=== PATIENT | male | born 1945 | race Hispanic/Latino ===

== ENCOUNTER → 2021-01-19 | Outpatient (CLI) | payer OTHER ==
[~2021-01-19] MED LIST: LIDOCAINE HCL 4% LTA SOL 4 ML VIAL ONE
== END | disposition home or self-care (01) ==
LOC: WHH 10:14
PROVIDERS: ATTEND Family Medicine
DX: I70.235 Atherosclerosis of native arteries of right leg with ulceration of other part of foot (principal); L97.522 Non-pressure chronic ulcer of other part of left foot with fat layer exposed; I12.9 Hypertensive chronic kidney disease with stage 1 through stage 4 chronic kidney disease, or unspecified chronic kidney disease; N18.2 Chronic kidney disease, stage 2 (mild); N52.9 Male erectile dysfunction, unspecified; M21.612 Bunion of left foot; M21.611 Bunion of right foot; E78.5 Hyperlipidemia, unspecified; E66.9 Obesity, unspecified; Z68.35 Body mass index [BMI] 35.0-35.9, adult
CPT/HCPCS: 87070; A4450; G0463

== ENCOUNTER → 2021-01-25 | Outpatient (CLI) | payer OTHER | END | disposition home or self-care (01) | LOC: RAH 07:26 | PROVIDERS: ATTEND Family Medicine | DX: L97.512 Non-pressure chronic ulcer of other part of right foot with fat layer exposed (principal); M79.89 Other specified soft tissue disorders; M21.00 Valgus deformity, not elsewhere classified, unspecified site; M20.41 Other hammer toe(s) (acquired), right foot | CPT/HCPCS: 73718 ==

== ENCOUNTER → 2021-01-26 | Outpatient (CLI) | payer OTHER | END | disposition home or self-care (01) | LOC: WHH 08:31 | PROVIDERS: ATTEND Family Medicine | DX: I70.235 Atherosclerosis of native arteries of right leg with ulceration of other part of foot (principal); L97.512 Non-pressure chronic ulcer of other part of right foot with fat layer exposed; I12.9 Hypertensive chronic kidney disease with stage 1 through stage 4 chronic kidney disease, or unspecified chronic kidney disease; N18.2 Chronic kidney disease, stage 2 (mild); N52.9 Male erectile dysfunction, unspecified; M21.612 Bunion of left foot; M21.611 Bunion of right foot; E78.5 Hyperlipidemia, unspecified; E66.9 Obesity, unspecified; Z68.35 Body mass index [BMI] 35.0-35.9, adult | CPT/HCPCS: G0463 ==

== ENCOUNTER → 2021-02-02 | Outpatient (CLI) | payer OTHER | END | disposition home or self-care (01) | LOC: WHH 08:10 | PROVIDERS: ATTEND Family Medicine | DX: I70.235 Atherosclerosis of native arteries of right leg with ulceration of other part of foot (principal); L97.512 Non-pressure chronic ulcer of other part of right foot with fat layer exposed; I12.9 Hypertensive chronic kidney disease with stage 1 through stage 4 chronic kidney disease, or unspecified chronic kidney disease; N18.2 Chronic kidney disease, stage 2 (mild); N52.9 Male erectile dysfunction, unspecified; M21.612 Bunion of left foot; M21.611 Bunion of right foot; E78.5 Hyperlipidemia, unspecified; E66.9 Obesity, unspecified; Z68.35 Body mass index [BMI] 35.0-35.9, adult | CPT/HCPCS: G0463 ==

== ENCOUNTER → 2021-02-09 | Outpatient (CLI) | payer OTHER | END | disposition home or self-care (01) | LOC: WHH 08:12 | PROVIDERS: ATTEND Family Medicine | DX: I70.235 Atherosclerosis of native arteries of right leg with ulceration of other part of foot (principal); L97.512 Non-pressure chronic ulcer of other part of right foot with fat layer exposed; I12.9 Hypertensive chronic kidney disease with stage 1 through stage 4 chronic kidney disease, or unspecified chronic kidney disease; N18.2 Chronic kidney disease, stage 2 (mild); N52.9 Male erectile dysfunction, unspecified; M21.612 Bunion of left foot; M21.611 Bunion of right foot; E78.5 Hyperlipidemia, unspecified; E66.9 Obesity, unspecified; Z68.35 Body mass index [BMI] 35.0-35.9, adult | CPT/HCPCS: G0463 ==

== ENCOUNTER → 2021-02-16 | Outpatient (CLI) | payer OTHER | END | disposition home or self-care (01) | LOC: WHH 08:17 | PROVIDERS: ATTEND Family Medicine | DX: I70.235 Atherosclerosis of native arteries of right leg with ulceration of other part of foot (principal); L97.512 Non-pressure chronic ulcer of other part of right foot with fat layer exposed; I70.202 Unspecified atherosclerosis of native arteries of extremities, left leg; I12.9 Hypertensive chronic kidney disease with stage 1 through stage 4 chronic kidney disease, or unspecified chronic kidney disease; N18.2 Chronic kidney disease, stage 2 (mild); N52.9 Male erectile dysfunction, unspecified; M21.612 Bunion of left foot; E78.5 Hyperlipidemia, unspecified; M21.611 Bunion of right foot; E66.9 Obesity, unspecified; Z68.35 Body mass index [BMI] 35.0-35.9, adult | CPT/HCPCS: G0463 ==

== ENCOUNTER → 2021-03-02 | Outpatient (CLI) | payer OTHER | END | disposition home or self-care (01) | LOC: WHH 08:11 | PROVIDERS: ATTEND Family Medicine | DX: I70.235 Atherosclerosis of native arteries of right leg with ulceration of other part of foot (principal); L97.512 Non-pressure chronic ulcer of other part of right foot with fat layer exposed; I70.202 Unspecified atherosclerosis of native arteries of extremities, left leg; I12.9 Hypertensive chronic kidney disease with stage 1 through stage 4 chronic kidney disease, or unspecified chronic kidney disease; N18.2 Chronic kidney disease, stage 2 (mild); E78.5 Hyperlipidemia, unspecified; E66.9 Obesity, unspecified; N52.9 Male erectile dysfunction, unspecified; M21.612 Bunion of left foot; M21.611 Bunion of right foot; Z68.35 Body mass index [BMI] 35.0-35.9, adult | CPT/HCPCS: A6197; G0463 ==

== ENCOUNTER → 2021-03-09 | Outpatient (CLI) | payer OTHER | END | disposition home or self-care (01) | LOC: WHH 08:14 | PROVIDERS: ATTEND Family Medicine | DX: I70.235 Atherosclerosis of native arteries of right leg with ulceration of other part of foot (principal); L97.512 Non-pressure chronic ulcer of other part of right foot with fat layer exposed; I70.202 Unspecified atherosclerosis of native arteries of extremities, left leg; I12.9 Hypertensive chronic kidney disease with stage 1 through stage 4 chronic kidney disease, or unspecified chronic kidney disease; N18.2 Chronic kidney disease, stage 2 (mild); E78.5 Hyperlipidemia, unspecified; E66.9 Obesity, unspecified; N52.9 Male erectile dysfunction, unspecified; M21.612 Bunion of left foot; M21.611 Bunion of right foot; Z68.35 Body mass index [BMI] 35.0-35.9, adult | CPT/HCPCS: 15275; A6197; A6207; Q4121 ×2 ==

== ENCOUNTER → 2021-03-16 | Outpatient (CLI) | payer OTHER | END | disposition home or self-care (01) | LOC: WHH 08:11 | PROVIDERS: ATTEND Family Medicine | DX: I70.235 Atherosclerosis of native arteries of right leg with ulceration of other part of foot (principal); L97.512 Non-pressure chronic ulcer of other part of right foot with fat layer exposed; I70.202 Unspecified atherosclerosis of native arteries of extremities, left leg; I12.9 Hypertensive chronic kidney disease with stage 1 through stage 4 chronic kidney disease, or unspecified chronic kidney disease; N18.2 Chronic kidney disease, stage 2 (mild); E78.5 Hyperlipidemia, unspecified; E66.9 Obesity, unspecified; N52.9 Male erectile dysfunction, unspecified; M21.612 Bunion of left foot; M21.611 Bunion of right foot; Z68.35 Body mass index [BMI] 35.0-35.9, adult | CPT/HCPCS: 15275; A6196; A6207; Q4121 ×2 ==

== ENCOUNTER → 2021-03-23 | Outpatient (CLI) | payer OTHER | END | disposition home or self-care (01) | LOC: WHH 08:15 | PROVIDERS: ATTEND Family Medicine | DX: I70.235 Atherosclerosis of native arteries of right leg with ulceration of other part of foot (principal); L97.512 Non-pressure chronic ulcer of other part of right foot with fat layer exposed; I70.202 Unspecified atherosclerosis of native arteries of extremities, left leg; I12.9 Hypertensive chronic kidney disease with stage 1 through stage 4 chronic kidney disease, or unspecified chronic kidney disease; N18.2 Chronic kidney disease, stage 2 (mild); E78.5 Hyperlipidemia, unspecified; E66.9 Obesity, unspecified; N52.9 Male erectile dysfunction, unspecified; M21.612 Bunion of left foot; M21.611 Bunion of right foot; Z68.35 Body mass index [BMI] 35.0-35.9, adult | CPT/HCPCS: 15275; A6196; A6207; Q4121 ×2 ==

== ENCOUNTER → 2021-04-20 | Outpatient (CLI) | payer OTHER | END | disposition home or self-care (01) | LOC: WHH 08:05 | PROVIDERS: ATTEND Family Medicine | DX: T86.828 Other complications of skin graft (allograft) (autograft) (principal); I70.235 Atherosclerosis of native arteries of right leg with ulceration of other part of foot; L97.512 Non-pressure chronic ulcer of other part of right foot with fat layer exposed; I70.202 Unspecified atherosclerosis of native arteries of extremities, left leg; I12.9 Hypertensive chronic kidney disease with stage 1 through stage 4 chronic kidney disease, or unspecified chronic kidney disease; N18.2 Chronic kidney disease, stage 2 (mild); E78.5 Hyperlipidemia, unspecified; E66.9 Obesity, unspecified; N52.9 Male erectile dysfunction, unspecified; M21.612 Bunion of left foot; M21.611 Bunion of right foot; Z68.25 Body mass index [BMI] 25.0-25.9, adult; Y83.2 Surgical operation with anastomosis, bypass or graft as the cause of abnormal reaction of the patient, or of later complication, without mention of misadventure at the time of the procedure | CPT/HCPCS: 15275; A6197; A6207; Q4121 ×2 ==

== ENCOUNTER → 2021-04-27 | Outpatient (CLI) | payer OTHER | END | disposition home or self-care (01) | LOC: WHH 08:02 | PROVIDERS: ATTEND Family Medicine | DX: T86.828 Other complications of skin graft (allograft) (autograft) (principal); I70.235 Atherosclerosis of native arteries of right leg with ulceration of other part of foot; L97.512 Non-pressure chronic ulcer of other part of right foot with fat layer exposed; I70.202 Unspecified atherosclerosis of native arteries of extremities, left leg; I12.9 Hypertensive chronic kidney disease with stage 1 through stage 4 chronic kidney disease, or unspecified chronic kidney disease; N18.2 Chronic kidney disease, stage 2 (mild); E66.9 Obesity, unspecified; E78.5 Hyperlipidemia, unspecified; N52.9 Male erectile dysfunction, unspecified; M21.611 Bunion of right foot; M21.612 Bunion of left foot; Z68.35 Body mass index [BMI] 35.0-35.9, adult; Z72.89 Other problems related to lifestyle; Z79.899 Other long term (current) drug therapy; Y83.2 Surgical operation with anastomosis, bypass or graft as the cause of abnormal reaction of the patient, or of later complication, without mention of misadventure at the time of the procedure | CPT/HCPCS: 15275; A6196; A6207; Q4121 ×2 ==

== ENCOUNTER → 2021-05-04 | Outpatient (CLI) | payer OTHER | END | disposition home or self-care (01) | LOC: WHH 08:09 | PROVIDERS: ATTEND Family Medicine | DX: T86.828 Other complications of skin graft (allograft) (autograft) (principal); I70.235 Atherosclerosis of native arteries of right leg with ulceration of other part of foot; L97.512 Non-pressure chronic ulcer of other part of right foot with fat layer exposed; I70.202 Unspecified atherosclerosis of native arteries of extremities, left leg; M21.611 Bunion of right foot; M21.612 Bunion of left foot; I12.9 Hypertensive chronic kidney disease with stage 1 through stage 4 chronic kidney disease, or unspecified chronic kidney disease; N18.2 Chronic kidney disease, stage 2 (mild); E66.9 Obesity, unspecified; E78.5 Hyperlipidemia, unspecified; N52.9 Male erectile dysfunction, unspecified; Z68.35 Body mass index [BMI] 35.0-35.9, adult; Z72.89 Other problems related to lifestyle; Z79.899 Other long term (current) drug therapy; Y83.2 Surgical operation with anastomosis, bypass or graft as the cause of abnormal reaction of the patient, or of later complication, without mention of misadventure at the time of the procedure | CPT/HCPCS: 15275; A6196; A6207; Q4121 ×2 ==

== ENCOUNTER → 2021-05-18 | Outpatient (CLI) | payer OTHER | END | disposition home or self-care (01) | LOC: WHH 08:02 | PROVIDERS: ATTEND Family Medicine | DX: T86.828 Other complications of skin graft (allograft) (autograft) (principal); I70.235 Atherosclerosis of native arteries of right leg with ulceration of other part of foot; L97.512 Non-pressure chronic ulcer of other part of right foot with fat layer exposed; I70.202 Unspecified atherosclerosis of native arteries of extremities, left leg; M21.611 Bunion of right foot; M21.612 Bunion of left foot; N18.6 End stage renal disease; E66.9 Obesity, unspecified; E78.5 Hyperlipidemia, unspecified; N52.9 Male erectile dysfunction, unspecified; Z68.35 Body mass index [BMI] 35.0-35.9, adult; Z72.89 Other problems related to lifestyle; Z79.899 Other long term (current) drug therapy; Y83.2 Surgical operation with anastomosis, bypass or graft as the cause of abnormal reaction of the patient, or of later complication, without mention of misadventure at the time of the procedure | CPT/HCPCS: 15275; A6197; A6207; Q4121 ×2 ==

== ENCOUNTER → 2021-07-06 | Outpatient (CLI) | payer OTHER | END | disposition home or self-care (01) | LOC: WHH 08:12 | PROVIDERS: ATTEND Family Medicine | DX: T86.828 Other complications of skin graft (allograft) (autograft) (principal); I70.235 Atherosclerosis of native arteries of right leg with ulceration of other part of foot; L97.512 Non-pressure chronic ulcer of other part of right foot with fat layer exposed; I70.202 Unspecified atherosclerosis of native arteries of extremities, left leg; M21.611 Bunion of right foot; M21.612 Bunion of left foot; I12.0 Hypertensive chronic kidney disease with stage 5 chronic kidney disease or end stage renal disease; N18.6 End stage renal disease; E66.9 Obesity, unspecified; E78.5 Hyperlipidemia, unspecified; N25.9 Disorder resulting from impaired renal tubular function, unspecified; Z68.35 Body mass index [BMI] 35.0-35.9, adult; Z72.89 Other problems related to lifestyle; Z79.899 Other long term (current) drug therapy; Y83.2 Surgical operation with anastomosis, bypass or graft as the cause of abnormal reaction of the patient, or of later complication, without mention of misadventure at the time of the procedure | CPT/HCPCS: A6021; A6197; G0463 ==

== ENCOUNTER → 2021-07-13 | Outpatient (CLI) | payer OTHER | END | disposition home or self-care (01) | LOC: WHH 08:15 | PROVIDERS: ATTEND Family Medicine | DX: T86.828 Other complications of skin graft (allograft) (autograft) (principal); I70.235 Atherosclerosis of native arteries of right leg with ulceration of other part of foot; L97.512 Non-pressure chronic ulcer of other part of right foot with fat layer exposed; I70.202 Unspecified atherosclerosis of native arteries of extremities, left leg; M21.611 Bunion of right foot; M21.612 Bunion of left foot; I12.0 Hypertensive chronic kidney disease with stage 5 chronic kidney disease or end stage renal disease; N18.6 End stage renal disease; E66.9 Obesity, unspecified; E78.5 Hyperlipidemia, unspecified; N25.9 Disorder resulting from impaired renal tubular function, unspecified; Z68.35 Body mass index [BMI] 35.0-35.9, adult; Z72.89 Other problems related to lifestyle; Z79.899 Other long term (current) drug therapy; Y83.2 Surgical operation with anastomosis, bypass or graft as the cause of abnormal reaction of the patient, or of later complication, without mention of misadventure at the time of the procedure | CPT/HCPCS: A6021; A6196; G0463 ==

== ENCOUNTER → 2021-07-20 | Outpatient (CLI) | payer OTHER | END | disposition home or self-care (01) | LOC: WHH 08:10 | PROVIDERS: ATTEND Family Medicine | DX: T86.828 Other complications of skin graft (allograft) (autograft) (principal); I70.235 Atherosclerosis of native arteries of right leg with ulceration of other part of foot; L97.512 Non-pressure chronic ulcer of other part of right foot with fat layer exposed; I70.202 Unspecified atherosclerosis of native arteries of extremities, left leg; M21.611 Bunion of right foot; M21.612 Bunion of left foot; I12.0 Hypertensive chronic kidney disease with stage 5 chronic kidney disease or end stage renal disease; N18.6 End stage renal disease; E66.9 Obesity, unspecified; E78.5 Hyperlipidemia, unspecified; N25.9 Disorder resulting from impaired renal tubular function, unspecified; Z68.35 Body mass index [BMI] 35.0-35.9, adult; Z72.89 Other problems related to lifestyle; Z79.899 Other long term (current) drug therapy; Y83.2 Surgical operation with anastomosis, bypass or graft as the cause of abnormal reaction of the patient, or of later complication, without mention of misadventure at the time of the procedure | CPT/HCPCS: A6021; A6196; G0463 ==

== ENCOUNTER → 2021-07-27 | Outpatient (CLI) | payer OTHER | END | disposition home or self-care (01) | LOC: WHH 08:12 | PROVIDERS: ATTEND Family Medicine | DX: T86.828 Other complications of skin graft (allograft) (autograft) (principal); I70.235 Atherosclerosis of native arteries of right leg with ulceration of other part of foot; L97.512 Non-pressure chronic ulcer of other part of right foot with fat layer exposed; I70.202 Unspecified atherosclerosis of native arteries of extremities, left leg; M21.611 Bunion of right foot; M21.612 Bunion of left foot; I12.0 Hypertensive chronic kidney disease with stage 5 chronic kidney disease or end stage renal disease; N18.6 End stage renal disease; E66.9 Obesity, unspecified; E78.5 Hyperlipidemia, unspecified; N25.9 Disorder resulting from impaired renal tubular function, unspecified; Z68.35 Body mass index [BMI] 35.0-35.9, adult; Z72.89 Other problems related to lifestyle; Z79.899 Other long term (current) drug therapy; Y83.2 Surgical operation with anastomosis, bypass or graft as the cause of abnormal reaction of the patient, or of later complication, without mention of misadventure at the time of the procedure | CPT/HCPCS: A6021; A6197; G0463 ==

== ENCOUNTER → 2021-08-03 | Outpatient (CLI) | payer OTHER | END | disposition home or self-care (01) | LOC: WHH 07:55 | PROVIDERS: ATTEND Family Medicine | DX: T86.828 Other complications of skin graft (allograft) (autograft) (principal); I70.235 Atherosclerosis of native arteries of right leg with ulceration of other part of foot; L97.512 Non-pressure chronic ulcer of other part of right foot with fat layer exposed; I70.202 Unspecified atherosclerosis of native arteries of extremities, left leg; M21.611 Bunion of right foot; M21.612 Bunion of left foot; I12.0 Hypertensive chronic kidney disease with stage 5 chronic kidney disease or end stage renal disease; N18.6 End stage renal disease; E66.9 Obesity, unspecified; E78.5 Hyperlipidemia, unspecified; N25.9 Disorder resulting from impaired renal tubular function, unspecified; Z68.35 Body mass index [BMI] 35.0-35.9, adult; Z72.89 Other problems related to lifestyle; Z79.899 Other long term (current) drug therapy; Y83.2 Surgical operation with anastomosis, bypass or graft as the cause of abnormal reaction of the patient, or of later complication, without mention of misadventure at the time of the procedure | CPT/HCPCS: 11042; A6209 ==

== ENCOUNTER → 2021-08-10 | Outpatient (CLI) | payer OTHER | END | disposition home or self-care (01) | LOC: WHH 08:09 | PROVIDERS: ATTEND Family Medicine | DX: T86.828 Other complications of skin graft (allograft) (autograft) (principal); I70.235 Atherosclerosis of native arteries of right leg with ulceration of other part of foot; L97.512 Non-pressure chronic ulcer of other part of right foot with fat layer exposed; I70.202 Unspecified atherosclerosis of native arteries of extremities, left leg; M21.611 Bunion of right foot; M21.612 Bunion of left foot; I12.0 Hypertensive chronic kidney disease with stage 5 chronic kidney disease or end stage renal disease; N18.6 End stage renal disease; E66.9 Obesity, unspecified; E78.5 Hyperlipidemia, unspecified; N25.9 Disorder resulting from impaired renal tubular function, unspecified; Z68.35 Body mass index [BMI] 35.0-35.9, adult; Z72.89 Other problems related to lifestyle; Z79.899 Other long term (current) drug therapy; Y83.2 Surgical operation with anastomosis, bypass or graft as the cause of abnormal reaction of the patient, or of later complication, without mention of misadventure at the time of the procedure | CPT/HCPCS: G0463 ==

== ENCOUNTER → 2021-08-17 | Outpatient (CLI) | payer OTHER | END | disposition home or self-care (01) | LOC: WHH 08:27 | PROVIDERS: ATTEND Family Medicine | DX: T86.828 Other complications of skin graft (allograft) (autograft) (principal); I70.235 Atherosclerosis of native arteries of right leg with ulceration of other part of foot; L97.512 Non-pressure chronic ulcer of other part of right foot with fat layer exposed; I70.202 Unspecified atherosclerosis of native arteries of extremities, left leg; M21.611 Bunion of right foot; M21.612 Bunion of left foot; I12.0 Hypertensive chronic kidney disease with stage 5 chronic kidney disease or end stage renal disease; N18.6 End stage renal disease; E66.9 Obesity, unspecified; E78.5 Hyperlipidemia, unspecified; N25.9 Disorder resulting from impaired renal tubular function, unspecified; Z68.35 Body mass index [BMI] 35.0-35.9, adult; Z72.89 Other problems related to lifestyle; Z79.899 Other long term (current) drug therapy; Y83.2 Surgical operation with anastomosis, bypass or graft as the cause of abnormal reaction of the patient, or of later complication, without mention of misadventure at the time of the procedure | CPT/HCPCS: 11042; A6196 ==

== ENCOUNTER → 2021-08-24 | Outpatient (CLI) | payer OTHER | END | disposition home or self-care (01) | LOC: WHH 08:00 | PROVIDERS: ATTEND Family Medicine | DX: T86.828 Other complications of skin graft (allograft) (autograft) (principal); I70.235 Atherosclerosis of native arteries of right leg with ulceration of other part of foot; L97.512 Non-pressure chronic ulcer of other part of right foot with fat layer exposed; M21.611 Bunion of right foot; M21.612 Bunion of left foot; I12.0 Hypertensive chronic kidney disease with stage 5 chronic kidney disease or end stage renal disease; N18.6 End stage renal disease; E66.9 Obesity, unspecified; E78.5 Hyperlipidemia, unspecified; N25.9 Disorder resulting from impaired renal tubular function, unspecified; Z68.35 Body mass index [BMI] 35.0-35.9, adult; Z72.89 Other problems related to lifestyle; Z79.899 Other long term (current) drug therapy; Y83.2 Surgical operation with anastomosis, bypass or graft as the cause of abnormal reaction of the patient, or of later complication, without mention of misadventure at the time of the procedure | CPT/HCPCS: 87070; 87077; 87186; A4450; A6196; G0463 ==

== ENCOUNTER → 2021-08-31 | Outpatient (CLI) | payer OTHER | END | disposition home or self-care (01) | LOC: WHH 08:01 | PROVIDERS: ATTEND Family Medicine | DX: I70.235 Atherosclerosis of native arteries of right leg with ulceration of other part of foot (principal); L97.512 Non-pressure chronic ulcer of other part of right foot with fat layer exposed; M21.611 Bunion of right foot; M21.612 Bunion of left foot; I12.0 Hypertensive chronic kidney disease with stage 5 chronic kidney disease or end stage renal disease; N18.6 End stage renal disease; E66.9 Obesity, unspecified; E78.5 Hyperlipidemia, unspecified; Z68.35 Body mass index [BMI] 35.0-35.9, adult; Z72.89 Other problems related to lifestyle; Z79.899 Other long term (current) drug therapy | CPT/HCPCS: 11042; A6022; A6196 ==

== ENCOUNTER → 2021-09-07 | Outpatient (CLI) | payer OTHER | END | disposition home or self-care (01) | LOC: WHH 08:03 | PROVIDERS: ATTEND Family Medicine | DX: I70.235 Atherosclerosis of native arteries of right leg with ulceration of other part of foot (principal); L97.512 Non-pressure chronic ulcer of other part of right foot with fat layer exposed; M21.611 Bunion of right foot; M21.612 Bunion of left foot; I12.0 Hypertensive chronic kidney disease with stage 5 chronic kidney disease or end stage renal disease; N18.6 End stage renal disease; E66.9 Obesity, unspecified; E78.5 Hyperlipidemia, unspecified; Z68.35 Body mass index [BMI] 35.0-35.9, adult; Z72.89 Other problems related to lifestyle; Z79.899 Other long term (current) drug therapy | CPT/HCPCS: 11042; A6022; A6197 ==

== ENCOUNTER → 2021-09-14 | Outpatient (CLI) | payer OTHER | END | disposition home or self-care (01) | LOC: WHH 08:10 | PROVIDERS: ATTEND Family Medicine | DX: I70.235 Atherosclerosis of native arteries of right leg with ulceration of other part of foot (principal); L97.512 Non-pressure chronic ulcer of other part of right foot with fat layer exposed; M21.611 Bunion of right foot; M21.612 Bunion of left foot; I12.0 Hypertensive chronic kidney disease with stage 5 chronic kidney disease or end stage renal disease; N18.6 End stage renal disease; E66.9 Obesity, unspecified; E78.5 Hyperlipidemia, unspecified; N52.9 Male erectile dysfunction, unspecified; Z68.35 Body mass index [BMI] 35.0-35.9, adult; Z72.89 Other problems related to lifestyle; Z79.899 Other long term (current) drug therapy | CPT/HCPCS: 11042; A6209 ==

== ENCOUNTER → 2021-09-21 | Outpatient (CLI) | payer OTHER | END | disposition home or self-care (01) | LOC: WHH 07:57 | PROVIDERS: ATTEND Family Medicine | DX: I70.235 Atherosclerosis of native arteries of right leg with ulceration of other part of foot (principal); L97.512 Non-pressure chronic ulcer of other part of right foot with fat layer exposed; M21.611 Bunion of right foot; M21.612 Bunion of left foot; I12.0 Hypertensive chronic kidney disease with stage 5 chronic kidney disease or end stage renal disease; N18.6 End stage renal disease; E66.9 Obesity, unspecified; E78.5 Hyperlipidemia, unspecified; N52.9 Male erectile dysfunction, unspecified; Z68.35 Body mass index [BMI] 35.0-35.9, adult; Z72.89 Other problems related to lifestyle; Z79.899 Other long term (current) drug therapy | CPT/HCPCS: A6209; G0463 ==

== ENCOUNTER 2021-10-04 11:39 | Observation (INO) | payer OTHER ==
[~2021-10-04] VITALS: Ht 167.6 cm; Wt 94.7 kg
[2021-10-04 12:54] LABS: APPEARANCE,URINE TURBID (CLEAR)
[2021-10-04 12:56] LABS: GLUCOSE, URINE (UA) NEGATIVE (NEGATIVE); OCCULT BLOOD,URINE LARGE (NEGATIVE); PROTEIN,URINE 100 mg/dL (NEGATIVE)
[2021-10-04 12:57] LABS: BILIRUBIN,URINE MODERATE (NEGATIVE); KETONES,URINE NEGATIVE (NEGATIVE); UROBILINOGEN,URINE 0.2 mg/dL (0.2-1.0)
[2021-10-04 12:58] LABS: COLOR,URINE RED (YELLOW); LEUKOCYTE ESTERASE ,URINE SMALL (NEGATIVE); NITRATE,URINE NEGATIVE (NEGATIVE)
[2021-10-04 13:04] LABS: BACTERIA,URINE Few /HPF (None Seen); RBC,URINE TNTC /HPF (0-1); SQUAMOUS EPITHELIAL CELL,UR Rare /HPF (0-2); WBC,URINE 26-50 /HPF (0-1)
[2021-10-04 13:31] LABS: HEMATOCRIT 36.8 % (42-54); MEAN CORPUSCULAR HEMOGLOBIN 29.3 pg (27.0-33.0); MEAN CORPUSCULAR HGB CONC 33.2 g/dL (32.0-36.0); MEAN CORPUSCULAR VOLUME 88.5 fL (79-99); RED BLOOD CELL COUNT(AUTO) 4.16 MIL/uL (4.50-6.20); RED CELL DISTRIBUTION WIDTH 13.5 % (11.0-15.5); WHITE BLOOD COUNT (AUTO) 7.8 K/uL (4.8-10.8)
[2021-10-04 13:52] LABS: CREATININE 0.9 mg/dL (0.5-1.5); POTASSIUM 3.7 mmol/L (3.5-5.1)
[2021-10-04 13:57] LABS: ALBUMIN 4.1 g/dL (3.5-5.0); BILIRUBIN,DIRECT 0.1 mg/dL (0.0-0.3); BILIRUBIN,TOTAL 0.5 mg/dL (0.2-1.0); TOTAL PROTEIN, SERUM 8.4 g/dL (6.0-8.3)
[2021-10-04] MEDS ORDERED: GUAIFENESIN-DM 200/20 MG 10 ML PO PRN (14:30)
[2021-10-04] MEDS ORDERED: ONDANSETRON 4MG INJ IVP PRN (14:30)
[2021-10-04] MEDS ORDERED: ACETAMINOPHEN 325 MG TAB PO PRN (14:30)
[2021-10-04] MEDS ORDERED: ZOLPIDEM TARTRATE 5 MG TAB PO PRN (14:30)
[2021-10-04] MEDS ORDERED: DIPHENHYDRAMINE HCL 25 MG CAPSULE PO PRN (14:30)
[2021-10-04 16:00] VITALS: BP 130/82
[2021-10-04 20:00] VITALS: BP 140/85
[2021-10-04] MEDS: 0.9%NACL 10ML VIAL IVP SCH ×2 (20:06→22:04)
[2021-10-04] MEDS ORDERED: IOHEXOL 350 MG/ML 100ML INFUS..BTL IV ONE (20:07)
[2021-10-04] MEDS: LISINOPRIL 40 MG TABLET PO SCH (22:03)
[2021-10-04] MEDS: SIMVASTATIN 20 MG TABLET PO SCH (22:03)
[2021-10-05] VITALS (20 sets, daily range): BP systolic 125–186; BP diastolic 60–96
[2021-10-05 05:16] LABS: HEMATOCRIT 36.9 % (42-54); MEAN CORPUSCULAR HGB CONC 32.8 g/dL (32.0-36.0); MEAN CORPUSCULAR VOLUME 88.5 fL (79-99); RED BLOOD CELL COUNT(AUTO) 4.17 MIL/uL (4.50-6.20); RED CELL DISTRIBUTION WIDTH 13.4 % (11.0-15.5); WHITE BLOOD COUNT (AUTO) 7.6 K/uL (4.8-10.8)
[2021-10-05 05:23] LABS: CREATININE 0.9 mg/dL (0.5-1.5); POTASSIUM 3.5 mmol/L (3.5-5.1)
[2021-10-05] MEDS ORDERED: CEFTRIAXONE 1G VIAL IVP SCH (08:00)
[2021-10-05] MEDS: LISINOPRIL 40 MG TABLET PO SCH ×2 (08:44→22:51)
[2021-10-05] MEDS: AMLODIPINE 5 MG TAB PO SCH (08:44)
[2021-10-05] MEDS ORDERED: LIDOCAINE PF 100MG/5ML (2%) SYRINGE 5ML ONE (12:35)
[2021-10-05] MEDS ORDERED: SUCCINYLCHOLINE 200MG/10ML SYR ONE (12:35)
[2021-10-05] MEDS ORDERED: DEXAMETHASONE SOD PHOSPHATE 10MG/ML 1ML VIAL ONE (12:35)
[2021-10-05] MEDS ORDERED: NEOSTIGMINE 5MG/5ML SYR IV ONE (12:36)
[2021-10-05] MEDS ORDERED: GLYCOPYRROLATE 1 MG/5 ML SYRINGE ONE (12:36)
[2021-10-05] MEDS ORDERED: MIDAZOLAM HCL 1 MG/ML 2ML VIAL ONE (12:36)
[2021-10-05] MEDS ORDERED: ONDANSETRON 4MG INJ ONE (12:36)
[2021-10-05] MEDS ORDERED: ROCURONIUM 10MG/1ML SYR 10 MG/ML ML ONE (12:36)
[2021-10-05] MEDS ORDERED: PROPOFOL 10 MG/ML 20ML VIAL IV ONE (12:36)
[2021-10-05] MEDS ORDERED: FENTANYL CITRATE PF 50 MCG/1 ML 2ML VIAL ONE (12:37)
[2021-10-05] MEDS ORDERED: PHENYLEPHRINE HCL 10 MG/ML 1ML VIAL IV ONE (12:38)
[2021-10-05] MEDS ORDERED: EPHEDRINE SULFATE 50 MG/ML AMPULE ONE (21:41)
[2021-10-05] MEDS ORDERED: MEPERIDINE-PF 25 MG/ML SYG ONE (22:33)
[2021-10-05] MEDS: SIMVASTATIN 20 MG TABLET PO SCH (22:51)
[2021-10-05] MEDS: CILOSTAZOL 100 MG TAB PO SCH (22:51)
[2021-10-06] VITALS (7 sets, daily range): BP systolic 129–170; BP diastolic 72–83
[2021-10-06] MEDS ORDERED: OPIUM/BELLADONNA ALKALOIDS 1 EACH SUPP.RECT RC PRN (03:30)
[2021-10-06] MEDS ORDERED: HYDROCODONE/ACETAMINOPHEN 5/325 MG TAB PO PRN (03:30)
[2021-10-06] MEDS ORDERED: DOCUSATE SODIUM 100 MG CAP PO SCH (09:00)
[2021-10-06] MEDS ORDERED: BACITRACIN 28.4 GM OINT TP SCH (09:00)
[2021-10-06] MEDS ORDERED: HYDROCHLOROTHIAZIDE 25 MG TABLET PO SCH (09:00)
[2021-10-06] MEDS: CILOSTAZOL 100 MG TAB PO SCH (09:06)
[2021-10-06] MEDS: AMLODIPINE 5 MG TAB PO SCH (09:06)
[2021-10-06] MEDS: LISINOPRIL 40 MG TABLET PO SCH (09:06)
[2021-10-11] MEDS ORDERED: CLONIDINE 0.3 MG/ 24 HR PATCH TD SCH (09:00)
== END 2021-10-06 17:00 | disposition home or self-care (01) ==
LOC: EDH 11:39 → EDHIP 11:41 → 3CH 17:05
PROVIDERS: ADMIT Internal Medicine; ATTEND Internal Medicine
DX: R31.0 Gross hematuria (principal); Z20.822 Contact with and (suspected) exposure to COVID-19; I10 Essential (primary) hypertension; I73.9 Peripheral vascular disease, unspecified; E78.2 Mixed hyperlipidemia; C67.5 Malignant neoplasm of bladder neck; N32.89 Other specified disorders of bladder; Z79.899 Other long term (current) drug therapy; Z98.890 Other specified postprocedural states
CPT/HCPCS: 36415 ×2; 52001; 52235; 71045; 74178; 76770; 80048 ×2; 80076; 81001; 85027 ×2; 87088; 87635; 93005; 96374; A4354; A4358; A4930; G0378 ×50; J0330; J0696; J1100; J2001; J2175; J2250; J2370; J2405; J2704; J2710; J3010; J3490 ×2; J7120; Q9967

== ENCOUNTER → 2021-10-19 | Outpatient (CLI) | payer OTHER ==
[~2021-10-19] MED LIST changes: -LIDOCAINE HCL 4% LTA SOL 4 ML VIAL ONE; +LIDOCAINE HCL 4% LTA SOL 4 ML VIAL TP ONE
== END | disposition home or self-care (01) ==
LOC: WHH 08:06
PROVIDERS: ATTEND Family Medicine
DX: I70.235 Atherosclerosis of native arteries of right leg with ulceration of other part of foot (principal); L97.512 Non-pressure chronic ulcer of other part of right foot with fat layer exposed; M21.611 Bunion of right foot; M21.612 Bunion of left foot; I12.0 Hypertensive chronic kidney disease with stage 5 chronic kidney disease or end stage renal disease; N18.6 End stage renal disease; E78.5 Hyperlipidemia, unspecified; N52.9 Male erectile dysfunction, unspecified; E66.9 Obesity, unspecified; Z68.35 Body mass index [BMI] 35.0-35.9, adult; Z72.89 Other problems related to lifestyle; Z79.899 Other long term (current) drug therapy
CPT/HCPCS: A6209; G0463

== ENCOUNTER → 2021-11-30 | Outpatient (CLI) | payer OTHER | END | disposition home or self-care (01) | LOC: WHH 08:05 | PROVIDERS: ATTEND Family Medicine | DX: I70.235 Atherosclerosis of native arteries of right leg with ulceration of other part of foot (principal); L97.512 Non-pressure chronic ulcer of other part of right foot with fat layer exposed; M21.611 Bunion of right foot; M21.612 Bunion of left foot; I12.0 Hypertensive chronic kidney disease with stage 5 chronic kidney disease or end stage renal disease; N18.6 End stage renal disease; E78.5 Hyperlipidemia, unspecified; N52.9 Male erectile dysfunction, unspecified; E66.9 Obesity, unspecified; Z68.35 Body mass index [BMI] 35.0-35.9, adult; Z72.89 Other problems related to lifestyle; Z79.899 Other long term (current) drug therapy | CPT/HCPCS: A4450; A6209; G0463 ==

== ENCOUNTER → 2021-12-14 | Outpatient (CLI) | payer OTHER | END | disposition home or self-care (01) | LOC: WHH 08:14 | PROVIDERS: ATTEND Family Medicine | DX: I70.235 Atherosclerosis of native arteries of right leg with ulceration of other part of foot (principal); L97.512 Non-pressure chronic ulcer of other part of right foot with fat layer exposed; M21.611 Bunion of right foot; M21.612 Bunion of left foot; I12.0 Hypertensive chronic kidney disease with stage 5 chronic kidney disease or end stage renal disease; N18.6 End stage renal disease; E78.5 Hyperlipidemia, unspecified; N52.9 Male erectile dysfunction, unspecified; E66.9 Obesity, unspecified; Z68.35 Body mass index [BMI] 35.0-35.9, adult; Z72.89 Other problems related to lifestyle; Z79.899 Other long term (current) drug therapy | CPT/HCPCS: G0463 ==

== ENCOUNTER → 2021-12-28 | Outpatient (CLI) | payer OTHER | END | disposition home or self-care (01) | LOC: WHH 08:05 | PROVIDERS: ATTEND Family Medicine | DX: I70.235 Atherosclerosis of native arteries of right leg with ulceration of other part of foot (principal); L97.512 Non-pressure chronic ulcer of other part of right foot with fat layer exposed; M21.611 Bunion of right foot; M21.612 Bunion of left foot; I12.0 Hypertensive chronic kidney disease with stage 5 chronic kidney disease or end stage renal disease; N18.6 End stage renal disease; E78.5 Hyperlipidemia, unspecified; N52.9 Male erectile dysfunction, unspecified; E66.9 Obesity, unspecified; Z68.35 Body mass index [BMI] 35.0-35.9, adult; Z72.89 Other problems related to lifestyle; Z79.899 Other long term (current) drug therapy | CPT/HCPCS: 11042; A4450; A6209 ==

== ENCOUNTER → 2022-01-11 | Outpatient (CLI) | payer OTHER | END | disposition home or self-care (01) | LOC: WHH 07:49 | PROVIDERS: ATTEND Family Medicine | DX: I70.235 Atherosclerosis of native arteries of right leg with ulceration of other part of foot (principal); L97.512 Non-pressure chronic ulcer of other part of right foot with fat layer exposed; M21.611 Bunion of right foot; M21.612 Bunion of left foot; I12.0 Hypertensive chronic kidney disease with stage 5 chronic kidney disease or end stage renal disease; N18.6 End stage renal disease; E78.5 Hyperlipidemia, unspecified; N52.9 Male erectile dysfunction, unspecified; E66.9 Obesity, unspecified; Z68.35 Body mass index [BMI] 35.0-35.9, adult; Z72.89 Other problems related to lifestyle; Z79.899 Other long term (current) drug therapy | CPT/HCPCS: 11042; A6209 ==

== ENCOUNTER → 2022-01-25 | Outpatient (CLI) | payer OTHER | END | disposition home or self-care (01) | LOC: WHH 08:07 | PROVIDERS: ATTEND Family Medicine | DX: I70.235 Atherosclerosis of native arteries of right leg with ulceration of other part of foot (principal); L97.512 Non-pressure chronic ulcer of other part of right foot with fat layer exposed; M21.611 Bunion of right foot; M21.612 Bunion of left foot; I12.0 Hypertensive chronic kidney disease with stage 5 chronic kidney disease or end stage renal disease; N18.6 End stage renal disease; E78.5 Hyperlipidemia, unspecified; N52.9 Male erectile dysfunction, unspecified; E66.9 Obesity, unspecified; Z68.35 Body mass index [BMI] 35.0-35.9, adult; Z72.89 Other problems related to lifestyle; Z79.899 Other long term (current) drug therapy | CPT/HCPCS: 97597; A6209 ==

== ENCOUNTER → 2022-02-08 | Outpatient (CLI) | payer OTHER | END | disposition home or self-care (01) | LOC: WHH 08:06 | PROVIDERS: ATTEND Family Medicine | DX: I70.235 Atherosclerosis of native arteries of right leg with ulceration of other part of foot (principal); L97.512 Non-pressure chronic ulcer of other part of right foot with fat layer exposed; M21.511 Acquired clawhand, right hand; M21.612 Bunion of left foot; I12.0 Hypertensive chronic kidney disease with stage 5 chronic kidney disease or end stage renal disease; N18.6 End stage renal disease; E78.5 Hyperlipidemia, unspecified; N52.9 Male erectile dysfunction, unspecified; E66.9 Obesity, unspecified; Z68.35 Body mass index [BMI] 35.0-35.9, adult; Z72.89 Other problems related to lifestyle; Z79.899 Other long term (current) drug therapy | CPT/HCPCS: 11042; A6209; A4450 ==

== ENCOUNTER → 2022-03-01 | Outpatient (CLI) | payer OTHER | END | disposition home or self-care (01) | LOC: WHH 08:12 | PROVIDERS: ATTEND Family Medicine | DX: I70.245 Atherosclerosis of native arteries of left leg with ulceration of other part of foot (principal); L97.525 Non-pressure chronic ulcer of other part of left foot with muscle involvement without evidence of necrosis; I70.235 Atherosclerosis of native arteries of right leg with ulceration of other part of foot; L97.512 Non-pressure chronic ulcer of other part of right foot with fat layer exposed; M21.611 Bunion of right foot; M21.612 Bunion of left foot; S91.302D Unspecified open wound, left foot, subsequent encounter; I12.0 Hypertensive chronic kidney disease with stage 5 chronic kidney disease or end stage renal disease; N18.6 End stage renal disease; E78.5 Hyperlipidemia, unspecified; N52.9 Male erectile dysfunction, unspecified; E66.9 Obesity, unspecified; F10.20 Alcohol dependence, uncomplicated; Z68.35 Body mass index [BMI] 35.0-35.9, adult; Z79.899 Other long term (current) drug therapy; X58.XXXD Exposure to other specified factors, subsequent encounter | CPT/HCPCS: G0463; A6209; A4450 ==

== ENCOUNTER → 2022-03-15 | Outpatient (CLI) | payer OTHER ==
[~2022-03-15] MED LIST changes: +GENTAMICIN 15 GM CREAM TP ONE
== END | disposition home or self-care (01) ==
LOC: WHH 08:04
PROVIDERS: ATTEND Family Medicine
DX: I70.235 Atherosclerosis of native arteries of right leg with ulceration of other part of foot (principal); L97.512 Non-pressure chronic ulcer of other part of right foot with fat layer exposed; I70.245 Atherosclerosis of native arteries of left leg with ulceration of other part of foot; L97.525 Non-pressure chronic ulcer of other part of left foot with muscle involvement without evidence of necrosis; I70.243 Atherosclerosis of native arteries of left leg with ulceration of ankle; L97.321 Non-pressure chronic ulcer of left ankle limited to breakdown of skin; S91.111A Laceration without foreign body of right great toe without damage to nail, initial encounter; S81.802D Unspecified open wound, left lower leg, subsequent encounter; M21.611 Bunion of right foot; M21.612 Bunion of left foot; I12.0 Hypertensive chronic kidney disease with stage 5 chronic kidney disease or end stage renal disease; N18.6 End stage renal disease; E78.5 Hyperlipidemia, unspecified; N52.9 Male erectile dysfunction, unspecified; E66.9 Obesity, unspecified; F10.20 Alcohol dependence, uncomplicated; Z68.35 Body mass index [BMI] 35.0-35.9, adult; Z79.899 Other long term (current) drug therapy; X58.XXXD Exposure to other specified factors, subsequent encounter; X58.XXXA Exposure to other specified factors, initial encounter; Y93.89 Activity, other specified; Y92.89 Other specified places as the place of occurrence of the external cause; Y99.8 Other external cause status
CPT/HCPCS: 97597; 87070; 87077 ×3; 87186 ×3; A6021; A6197

== ENCOUNTER → 2022-03-22 | Outpatient (CLI) | payer OTHER ==
[~2022-03-22] MED LIST changes: -GENTAMICIN 15 GM CREAM TP ONE
== END | disposition home or self-care (01) ==
LOC: WHH 08:23
PROVIDERS: ATTEND Family Medicine
DX: I70.245 Atherosclerosis of native arteries of left leg with ulceration of other part of foot (principal); L97.526 Non-pressure chronic ulcer of other part of left foot with bone involvement without evidence of necrosis; I70.235 Atherosclerosis of native arteries of right leg with ulceration of other part of foot; L97.522 Non-pressure chronic ulcer of other part of left foot with fat layer exposed; I70.243 Atherosclerosis of native arteries of left leg with ulceration of ankle; L97.322 Non-pressure chronic ulcer of left ankle with fat layer exposed; S91.111D Laceration without foreign body of right great toe without damage to nail, subsequent encounter; S81.802D Unspecified open wound, left lower leg, subsequent encounter; M21.611 Bunion of right foot; M21.612 Bunion of left foot; I12.0 Hypertensive chronic kidney disease with stage 5 chronic kidney disease or end stage renal disease; N18.6 End stage renal disease; E78.5 Hyperlipidemia, unspecified; N52.9 Male erectile dysfunction, unspecified; E66.9 Obesity, unspecified; F10.20 Alcohol dependence, uncomplicated; Z68.35 Body mass index [BMI] 35.0-35.9, adult; Z79.899 Other long term (current) drug therapy; X58.XXXD Exposure to other specified factors, subsequent encounter
CPT/HCPCS: 11042; 87070; 87077; 87186; A6021; A6197

== ENCOUNTER 2024-03-18 14:41 | Inpatient (IN) | payer OTHER, MEDICARE ==
[~2024-03-18] VITALS: Ht 167.6 cm; Wt 101.5 kg
[~2024-03-18 14:41] MED LIST changes: +ASPI-1114 PO; +CLON1PAT14 TD; +HYDR25TA PO; -LIDOCAINE HCL 4% LTA SOL 4 ML VIAL TP ONE; +LISI40TA9 PO; +METF-444 PO; +NAPR220C15 PO; +OXYB5TAB20 PO; +RIVA2.5T PO; +ROSU40TA70 PO
[2024-03-18] MEDS: LACTATED RINGERS 1000ML 1,000 ML IV ONE (15:52)
[2024-03-18 16:00] LABS: BASOPHILS # (AUTO) 0.08 K/uL (0.00-0.20); BASOPHILS % (AUTO) 0.7 % (0.0-5.0); EOSINOPHILS # (AUTO) 0.34 K/uL (0.00-0.70); EOSINOPHILS % (AUTO) 2.9 % (0.0-8.0); HEMATOCRIT 37.5 % (42-54); LYMPHOCYTES # (AUTO) 1.8 K/uL (1.0-4.8); LYMPHOCYTES % (AUTO) 15.1 % (21.0-51.0); MEAN CORPUSCULAR HEMOGLOBIN 27.8 pg (27.0-33.0); MEAN CORPUSCULAR HGB CONC 32.8 g/dL (32.0-36.0); MEAN CORPUSCULAR VOLUME 84.8 fL (79-99); MONOCYTES # (AUTO) 1.2 K/uL (0.1-1.0); MONOCYTES % (AUTO) 10.1 % (3.0-13.0); NEUTROPHILS # (AUTO) 8.3 K/uL (1.8-7.7); NEUTROPHILS % (AUTO) 70.3 % (40.0-77.0); PLATELET COUNT (AUTO) 320 K/uL (130-400); RED BLOOD CELL COUNT(AUTO) 4.42 MIL/uL (4.50-6.20); RED CELL DISTRIBUTION WIDTH 14.8 % (11.0-15.5); WHITE BLOOD COUNT (AUTO) 11.7 K/uL (4.8-10.8)
[2024-03-18 16:15] LABS: CREATININE 1.5 mg/dL (0.5-1.3); POTASSIUM 3.9 mmol/L (3.5-5.1)
[2024-03-18 16:19] LABS: ALBUMIN 2.7 g/dL (3.5-5.0); BILIRUBIN,TOTAL 0.7 mg/dL (0.2-1.0); TOTAL PROTEIN, SERUM 7.4 g/dL (6.0-8.3)
[2024-03-18] MEDS ORDERED: VANCOMYCIN PROTOCOL PER PHARMACY IV SCH (17:30)
[2024-03-18] MEDS: 1/2 NS 1000ML 1,000 ML IV SCH (17:30)
[2024-03-18] MEDS: HEParin 5,000 UNIT VIAL SQ SCH (17:38)
[2024-03-18] MEDS: ZOSYN 3.375GM +NS 50ML IV SCH (18:06)
[2024-03-18] MEDS: VANCOMYCIN 1.5 GM/250 ML BAG IV ONE (19:22)
[2024-03-18] MEDS: hydroMORPHone 0.5 MG SYG (0.5MG/0.5ML) IVP PRN (21:13)
[2024-03-19] VITALS (7 sets, daily range): BP systolic 114–180; BP diastolic 53–98; PULSE 61–76; RESP 16–20; O2SAT 99
[2024-03-19 04:55] LABS: BASOPHILS # (AUTO) 0.09 K/uL (0.00-0.20); BASOPHILS % (AUTO) 0.9 % (0.0-5.0); EOSINOPHILS # (AUTO) 0.32 K/uL (0.00-0.70); EOSINOPHILS % (AUTO) 3.1 % (0.0-8.0); HEMATOCRIT 38.2 % (42-54); IMMATURE GRANULOCYTE ABSOLUTE 0.11 K/uL (0-1); LYMPHOCYTES # (AUTO) 1.7 K/uL (1.0-4.8); LYMPHOCYTES % (AUTO) 16.4 % (21.0-51.0); MEAN CORPUSCULAR HEMOGLOBIN 28.3 pg (27.0-33.0); MEAN CORPUSCULAR HGB CONC 32.7 g/dL (32.0-36.0); MEAN CORPUSCULAR VOLUME 86.6 fL (79-99); MONOCYTES % (AUTO) 9.5 % (3.0-13.0); NEUTROPHILS # (AUTO) 7.2 K/uL (1.8-7.7); PLATELET COUNT (AUTO) 339 K/uL (130-400); RED BLOOD CELL COUNT(AUTO) 4.41 MIL/uL (4.50-6.20); RED CELL DISTRIBUTION WIDTH 14.8 % (11.0-15.5); WHITE BLOOD COUNT (AUTO) 10.4 K/uL (4.8-10.8)
[2024-03-19 05:18] LABS: ALBUMIN 2.8 g/dL (3.5-5.0); BILIRUBIN,TOTAL 0.6 mg/dL (0.2-1.0); CREATININE 1.5 mg/dL (0.5-1.3); POTASSIUM 3.9 mmol/L (3.5-5.1); TOTAL PROTEIN, SERUM 7.8 g/dL (6.0-8.3)
[2024-03-19] MEDS: VANCOMYCIN 1G/250ML KIT 250 ML IV SCH (06:12)
[2024-03-19] MEDS: hydroMORPHone 0.5 MG SYG (0.5MG/0.5ML) IVP PRN (08:41)
[2024-03-19] MEDS: HONEY 1 APPL/ML TUBE TP SCH (09:41)
[2024-03-20] VITALS (8 sets, daily range): BP systolic 138–170; BP diastolic 50–80; PULSE 57–75; RESP 16–20; O2SAT 95–97
[2024-03-20 07:16] LABS: BASOPHILS # (AUTO) 0.08 K/uL (0.00-0.20); BASOPHILS % (AUTO) 0.8 % (0.0-5.0); EOSINOPHILS # (AUTO) 0.28 K/uL (0.00-0.70); HEMATOCRIT 35.6 % (42-54); IMMATURE GRANULOCYTE ABSOLUTE 0.12 K/uL (0-1); LYMPHOCYTES # (AUTO) 1.7 K/uL (1.0-4.8); LYMPHOCYTES % (AUTO) 17.8 % (21.0-51.0); MEAN CORPUSCULAR HEMOGLOBIN 28.5 pg (27.0-33.0); MEAN CORPUSCULAR HGB CONC 32.6 g/dL (32.0-36.0); MEAN CORPUSCULAR VOLUME 87.5 fL (79-99); MONOCYTES # (AUTO) 1.1 K/uL (0.1-1.0); MONOCYTES % (AUTO) 11.8 % (3.0-13.0); NEUTROPHILS # (AUTO) 6.2 K/uL (1.8-7.7); NEUTROPHILS % (AUTO) 65.3 % (40.0-77.0); PLATELET COUNT (AUTO) 323 K/uL (130-400); RED BLOOD CELL COUNT(AUTO) 4.07 MIL/uL (4.50-6.20); RED CELL DISTRIBUTION WIDTH 14.6 % (11.0-15.5); WHITE BLOOD COUNT (AUTO) 9.4 K/uL (4.8-10.8)
[2024-03-20 08:31] LABS: CREATININE 1.4 mg/dL (0.5-1.3); POTASSIUM 3.7 mmol/L (3.5-5.1)
[2024-03-20] MEDS: acetaMINOPHEN 325 MG TAB PO PRN (20:20)
[2024-03-21] VITALS (7 sets, daily range): BP systolic 125–173; BP diastolic 57–83; PULSE 53–114; RESP 16–18; O2SAT 93–97
[2024-03-22] VITALS (26 sets, daily range): BP systolic 128–185; BP diastolic 52–106; PULSE 51–82; RESP 14–18; O2SAT 96–100
[2024-03-22] MEDS: VANCOMYCIN 1.25 GM/250 ML BAG 250 ML IV SCH (05:55)
[2024-03-22 14:52] LABS: HEMATOCRIT 39.7 % (42-54); MEAN CORPUSCULAR HEMOGLOBIN 28.1 pg (27.0-33.0); MEAN CORPUSCULAR HGB CONC 32.7 g/dL (32.0-36.0); MEAN CORPUSCULAR VOLUME 85.9 fL (79-99); RED BLOOD CELL COUNT(AUTO) 4.62 MIL/uL (4.50-6.20); RED CELL DISTRIBUTION WIDTH 14.4 % (11.0-15.5); WHITE BLOOD COUNT (AUTO) 11.8 K/uL (4.8-10.8)
[2024-03-22 15:05] LABS: CREATININE 1.2 mg/dL (0.5-1.3); POTASSIUM 3.8 mmol/L (3.5-5.1)
[2024-03-22] MEDS ORDERED: ROPivacaine 0.5% 5MG/ML 30ML ONE (15:46)
[2024-03-22] MEDS ORDERED: FENTanyl CITRate PF 50 MCG/1 ML 2ML VIAL ONE (15:47)
[2024-03-22] MEDS ORDERED: MIDAZOLAM HCL 1 MG/ML 2ML VIAL ONE (15:47)
[2024-03-22] MEDS ORDERED: DiphenhydrAMINE HCL 50 MG/ML VIAL ONE (16:14)
[2024-03-22] MEDS ORDERED: proPOFol 10 MG/ML 20ML VIAL IV ONE ×2 (16:21→16:47)
[2024-03-22] MEDS ORDERED: GLYCOPYRROLATE 0.2 MG/ML 5 ML VIAL ONE (16:42)
[2024-03-22] MEDS: HYDROcodone/APAP 5/325 1 TAB TABLET PO PRN (20:32)
[2024-03-23] VITALS (9 sets, daily range): BP systolic 116–165; BP diastolic 60–106; PULSE 55–99; RESP 16–20; O2SAT 93
[2024-03-23] MEDS: MORPHINE 4 MG SYG IV PRN (06:33)
[2024-03-24] VITALS (7 sets, daily range): BP systolic 149–189; BP diastolic 55–97; PULSE 70–88; RESP 18–20; O2SAT 96
[2024-03-24] MEDS: HEParin 5,000 UNIT VIAL SQ SCH (08:40)
[2024-03-25 03:40] VITALS: BP 158/60; PULSE 68; RESP 18
[2024-03-25 07:31] VITALS: BP 152/72; PULSE 73; RESP 18
[2024-03-25 11:06] VITALS: BP 151/64; PULSE 69; RESP 16
[2024-03-25 15:09] VITALS: BP 148/62; PULSE 70; RESP 17
== END 2024-03-25 15:40 | DRG 240 ==
LOC: EDH 14:41 → OBSVTOIN 16:57 → EDHIP 16:57 → 3AH 23:48
PROVIDERS: ADMIT Internal Medicine; ATTEND Internal Medicine
PROC: 0Y6H0Z1 Detachment at Right Lower Leg, High, Open Approach (ICD-10-PCS; principal; 2024-03-22 15:56)
DX: E11.52 Type 2 diabetes mellitus with diabetic peripheral angiopathy with gangrene (principal); L03.115 Cellulitis of right lower limb; M86.8X6 Other osteomyelitis, lower leg; E11.69 Type 2 diabetes mellitus with other specified complication; E11.621 Type 2 diabetes mellitus with foot ulcer; L97.509 Non-pressure chronic ulcer of other part of unspecified foot with unspecified severity; S80.821A Blister (nonthermal), right lower leg, initial encounter; E78.5 Hyperlipidemia, unspecified; I10 Essential (primary) hypertension; I25.10 Atherosclerotic heart disease of native coronary artery without angina pectoris; Z85.51 Personal history of malignant neoplasm of bladder
CPT/HCPCS: 36415; 73630; 80048; 80053; 80202; 82948; 83605; 85025; 85027; 87040; 87070; 87076; 87086; 87186; 93926; G0378; J1170; J1200; J1644; J2250; J2270; J2543; J2704; J2795; J3010; J3370; J3490; J7120; 3370; A4222; A4223; A4649; A4930; A6223; A6446

== ENCOUNTER 2024-07-17 10:37 | Observation (INO) | payer OTHER, MEDICARE ==
[~2024-07-17] VITALS: Ht 165.1 cm; Wt 84.2 kg
[~2024-07-17 10:37] MED LIST changes: -ROSU40TA70 PO; +ROSU40TA88 PO
[2024-07-17 12:32] LABS: MEAN CORPUSCULAR HEMOGLOBIN 28.5 pg (27.0-33.0); MEAN CORPUSCULAR HGB CONC 32.4 g/dL (32.0-36.0); PLATELET COUNT (AUTO) 249 K/uL (130-400); RED BLOOD CELL COUNT(AUTO) 4.66 MIL/uL (4.50-6.20); RED CELL DISTRIBUTION WIDTH 14.6 % (11.0-15.5); WHITE BLOOD COUNT (AUTO) 9.1 K/uL (4.8-10.8)
[2024-07-17 12:54] LABS: ALBUMIN 3.5 g/dL (3.5-5.0); BILIRUBIN,DIRECT 0.1 mg/dL (0.0-0.3); BILIRUBIN,TOTAL 0.7 mg/dL (0.2-1.0); CREATININE 2.2 mg/dL (0.5-1.3); POTASSIUM 4.3 mmol/L (3.5-5.1); TOTAL PROTEIN, SERUM 7.7 g/dL (6.0-8.3)
[2024-07-17] MEDS ORDERED: DiphenhydrAMINE HCL 25 MG CAPSULE PO PRN (13:00)
[2024-07-17] MEDS ORDERED: cloNIDine HCL 0.1 MG TABLET PO PRN (13:00)
[2024-07-17] MEDS ORDERED: ondanSETRON 4MG INJ IVP PRN (13:00)
[2024-07-17] MEDS ORDERED: ZOLPidem TARTrate 5 MG TAB PO PRN (13:00)
[2024-07-17 13:29] LABS: EOSINOPHILS % (MANUAL) 6 % (1-6); LYMPHOCYTES % (MANUAL) 34 % (22-44); MAN.DIFF COMMENT-IMPRESSION MANUAL DIFFERENTIAL; MONOCYTES % (MANUAL) 5 % (2-9); PLATELET MORPHOLOGY COMMENT ADEQUATE; SEGMENTED NEUTROPHILS % 55 % (40-70); TOTAL CELLS COUNTED 100
[2024-07-17] MEDS: 1/2 NS 1000ML 1,000 ML IV SCH (13:37)
--- NOTE | 2024-07-17 14:51 | HMCIMG ---
US RENAL SONOGRAM REASON: WANDA, GBW, ANEMIA acute renal injury. COMPARISON: None TECHNIQUE: Renal ultrasound. FINDINGS: The right kidney measures 10.4 x 5.2 x 4.4 cm the left kidney measures 10.5 x 5.4 x 5.1 cm. Renal cortex homogeneous bilaterally. No hydronephrosis. Right kidney contains a small superior cortical cyst measuring 2 cm diameter. No perinephric fluid collections. Urinary bladder is smooth and regular in outline. IMPRESSION: Normal appearance of renal cortex bilaterally. Right renal cortex contains a 2 cm cyst.
[2024-07-17 16:00] VITALS: BP 132/53; PULSE 63; RESP 16; TEMP 98.8
--- NOTE | 2024-07-17 19:41 | HP ---
HISTORY OF PRESENT ILLNESS: The patient in direct admission from my office, came complaining of persistent generalized body weakness and anorexia. He has had recent workup done with labs and after reviewing the labs, we agreed on admitting to [facility]. ALLERGIES: No known drug allergies. REVIEW OF SYSTEMS: No fever, chills, seizures, loss of conscious. No chest pain, palpitation, no cough, wheeze or rhonchi. No abdominal pain, nausea, vomiting, diarrhea, no dysuria, urgency, frequency. No rashes, petechia or ecchymoses. No hallucinations, delusions, no suicidal ideation. No paresis or paresthesias. The patient is status post bilateral BKA. PAST MEDICAL HISTORY: Type 2 diabetes, hypertension, dyslipidemia, chronic kidney disease stage 3, peripheral arterial disease. MEDICATIONS: Include metformin, Xarelto 2.5 b.i.d., hydrochlorothiazide, rosuvastatin, lisinopril, oxybutynin, clonidine patch 0.2 mg every 24 hours. PHYSICAL EXAMINATION: GENERAL: Currently, awake, alert, oriented in person, time and place. VITAL SIGNS: Blood pressure 126/70, pulse 69, respiratory rate 18, temperature 97.2. HEENT: Normocephalic, atraumatic. LUNGS: Clear to auscultation. HEART: S1, S2 are distant. ABDOMEN: Soft, nontender. EXTREMITIES: Status post bilateral BKA. LABORATORY DATA: Recent labs, WBC count 12.1, hemoglobin 12.4, platelets 233. Glucose 112, BUN 90, creatinine 6.2, GFR 8, potassium 3.8, carbon dioxide 21, albumin 3.7. Liver function test within normal limits. ASSESSMENT AND PLAN: * Generalized body weakness, most likely secondary to acute kidney injury. We are going to start her on IV fluids. Workup will be sent. * Acute kidney injury. The patient will be started on IV fluids. Discontinue lisinopril, hydrochlorothiazide. Kidney ultrasound scheduled. * Hypertension. We are going to replace lisinopril and hydrochlorothiazide with amlodipine 5 mg a day. * Anemia, mild. Continue to monitor. * Type 2 diabetes. Metformin will be discontinued. The patient will be started on insulin sliding scale as needed. * Peripheral arterial disease. Continue with aspirin. * Dyslipidemia. Continue rosuvastatin. Follow up in a.m. with labs. DOS: 07/17/2024 TID: [id number] RECEIPT: [id number] MTDD
[2024-07-17] MEDS: FAMOTIDINE 20MG TAB PO SCH (21:08)
[2024-07-17] MEDS: acetaMINOPHEN 325 MG TAB PO PRN (21:12)
[2024-07-17 23:57] VITALS: BP 154/76; PULSE 73; RESP 19; TEMP 98.8
[2024-07-18 04:00] VITALS: BP 128/59; PULSE 43; RESP 17; TEMP 97.7
[2024-07-18 05:16] LABS: BASOPHILS # (AUTO) 0.12 K/uL (0.00-0.20); BASOPHILS % (AUTO) 1.7 % (0.0-5.0); EOSINOPHILS % (AUTO) 5.8 % (0.0-8.0); HEMATOCRIT 34.8 % (42-54); IMMATURE GRANULOCYTE ABSOLUTE 0.02 K/uL (0-1); LYMPHOCYTES # (AUTO) 2.1 K/uL (1.0-4.8); LYMPHOCYTES % (AUTO) 30.9 % (21.0-51.0); MEAN CORPUSCULAR HEMOGLOBIN 28.1 pg (27.0-33.0); MEAN CORPUSCULAR HGB CONC 32.2 g/dL (32.0-36.0); MEAN CORPUSCULAR VOLUME 87.2 fL (79-99); MONOCYTES # (AUTO) 0.7 K/uL (0.1-1.0); MONOCYTES % (AUTO) 9.4 % (3.0-13.0); NEUTROPHILS # (AUTO) 3.6 K/uL (1.8-7.7); NEUTROPHILS % (AUTO) 51.9 % (40.0-77.0); PLATELET COUNT (AUTO) 200 K/uL (130-400); RED BLOOD CELL COUNT(AUTO) 3.99 MIL/uL (4.50-6.20); RED CELL DISTRIBUTION WIDTH 13.9 % (11.0-15.5); WHITE BLOOD COUNT (AUTO) 6.9 K/uL (4.8-10.8)
[2024-07-18 05:37] LABS: BILIRUBIN,TOTAL 0.5 mg/dL (0.2-1.0); CREATININE 1.9 mg/dL (0.5-1.3); POTASSIUM 3.7 mmol/L (3.5-5.1); TOTAL PROTEIN, SERUM 6.6 g/dL (6.0-8.3)
--- NOTE | 2024-07-18 06:41 | NUR ---
MD JENNIFER DE LA ROSA VISITED WITH PATIENT. POC DISCUSSED. NEW ORDERS RECEIVED AND CARRIED OUT. PATIENT AWARE. Addendum: 07/18/24 at 0642 by CARSON CAMACHO RN RN Amended: Links added.
[2024-07-18 08:00] VITALS: BP 109/40; PULSE 45; RESP 17; TEMP 99; O2SAT 98
[2024-07-18] MEDS: amLODIPine 5 MG TAB PO SCH (09:00)
[2024-07-18] MEDS: ENOXAPARIN SODIUM 30 MG/0.3 ML SQ SCH (09:42)
--- NOTE | 2024-07-18 09:52 | PN ---
SUBJECTIVE: The patient is feeling better. Denies any chest pain or shortness of breath. OBJECTIVE: VITAL SIGNS: Blood pressure is 120/60, pulse is on the low side at 45, respirations 16. LUNGS: Mostly decreased breath sounds with no wheeze or rhonchi. HEART: Regular rate and rhythm. ABDOMEN: Soft, nontender. LABORATORY DATA: Significant for potassium of 3.7, creatinine 1.9, BUN is 47. ASSESSMENT AND PLAN: * Acute kidney injury, which is significantly improved. Creatinine is 1.9 at this time. If the patient's creatinine remained stable, may be discharged in the next 24 hours. * Hypertension, stable. * Bradycardia, need to be monitored closely. * Generalized weakness, which is improving. * Tentatively discharge planning for tomorrow. TID: [id number] RECEIPT: [id number]
[2024-07-18 12:00] VITALS: BP 118/43; PULSE 46; RESP 19; TEMP 97.4
--- NOTE | 2024-07-18 15:32 | NUR ---
INITIAL ASSESSMENT Patient lives alone. He has no home services. DME: wheelchair. Patient is able to complete ADLs independently and drives if needed. Family assists with transportation. PCP is Dr. Bo Elias. Pharmacy is [facility] on [address] in [place]. Patient has no issues with having stable assisted to live in or transportation. He has lived in his home for some time. No concerns voiced regarding not having enough food in the home. No safety concerns voiced regarding returning home. DCP is home. Addendum: 07/18/24 at 1534 by DEB FELIZ Amended: Links added.
[2024-07-18 16:00] VITALS: BP 120/52; PULSE 44; RESP 19; TEMP 97.5
[2024-07-18 19:54] VITALS: BP 102/54; PULSE 48; RESP 16; TEMP 97.8
[2024-07-18 20:00] VITALS: O2SAT 99
[2024-07-19] VITALS: BP 99/52; PULSE 45; RESP 18; TEMP 98.2
[2024-07-19 04:00] VITALS: BP 134/61; PULSE 42; RESP 19; TEMP 97.9
[2024-07-19 05:03] LABS: HEMATOCRIT 33.6 % (42-54); MEAN CORPUSCULAR HEMOGLOBIN 28.8 pg (27.0-33.0); MEAN CORPUSCULAR VOLUME 87.3 fL (79-99); RED BLOOD CELL COUNT(AUTO) 3.85 MIL/uL (4.50-6.20); WHITE BLOOD COUNT (AUTO) 6.7 K/uL (4.8-10.8)
[2024-07-19 05:33] LABS: CREATININE 1.6 mg/dL (0.5-1.3); PHOSPHORUS 3.4 mg/dL (2.5-4.9); POTASSIUM 3.5 mmol/L (3.5-5.1); URIC ACID 3.7 mg/dL (2.6-7.2)
--- NOTE | 2024-07-19 06:37 | NUR ---
MD JENNIFER DE LA ROSA VISITED WITH PATIENT. POC DISCUSSED. NEW ORDERS RECEIVED AND CARRIED OUT. PATIENT AWARE. IN GOOD SPIRITS. CALL LIGHT WITHIN REACH. NO QUESTIONS OR CONCERNS VOICED AT THIS TIME. Addendum: 07/19/24 at 0638 by CARSON CAMACHO RN RN Amended: Links added.
[2024-07-19 07:54] VITALS: BP 139/59; PULSE 44; RESP 19; TEMP 97.6
[2024-07-19 07:55] VITALS: O2SAT 98
[2024-07-19] MEDS: PoTASSium chloRIDE 20MEQ ER 20 MEQ ERTAB PO ONE (09:01)
[2024-07-19 12:00] VITALS: BP 144/56; PULSE 44; RESP 19; TEMP 98.1
--- NOTE | 2024-07-19 13:58 | NUR ---
STEVE CALLED TO B RX OF NORVASC 5MG PO DAILY #30 CALLED TO [facility] ON [facility]
--- NOTE | 2024-07-19 14:30 | NUR ---
EMS CALLED EMS FOR NON EMERGENCY TRANSFER HOME. CALLED AND INFORMED SISTER LA NENA THAT EMS WAS CALLED.
--- NOTE | 2024-07-19 16:45 | NUR ---
EMS ARRIVAL EMS ARRIVED. D/C PAPERWORK GIVEN TO PATIENT AND ACKNOWLEDGED. IV REMOVED
--- NOTE | 2024-07-20 12:20 | DS ---
DISCHARGE DIAGNOSES: Acute kidney injury, significantly improved, creatinine 1.6 at the time of discharge; hyperkalemia, on supplementation; dehydration, which is improved; hypertension, diabetes mellitus, discontinued the metformin and follow up with Dr. Scott in three days. HOSPITAL COURSE: The patient is hospitalized with acute kidney injury. The patient is hydrated. Metformin was discontinued. The patient's creatinine significantly improved to 1.6. Hypokalemia, potassium 3.1, given a dose of 40 mEq of potassium. Hypertension, stable. The patient is going to be discharged home. TID: [id number] RECEIPT: [id number]
== END 2024-07-19 17:50 | disposition home or self-care (01) ==
LOC: EDH 10:37 → EDHIP 11:27 → UNDOADMOB 11:27 → 3BH 23:49
PROVIDERS: ADMIT Internal Medicine; ATTEND Internal Medicine
DX: I12.9 Hypertensive chronic kidney disease with stage 1 through stage 4 chronic kidney disease, or unspecified chronic kidney disease (principal); E11.22 Type 2 diabetes mellitus with diabetic chronic kidney disease; N18.30 Chronic kidney disease, stage 3 unspecified; N17.9 Acute kidney failure, unspecified; E11.51 Type 2 diabetes mellitus with diabetic peripheral angiopathy without gangrene; E87.6 Hypokalemia; E87.5 Hyperkalemia; E86.0 Dehydration; E78.5 Hyperlipidemia, unspecified; R00.1 Bradycardia, unspecified; R63.0 Anorexia; D63.8 Anemia in other chronic diseases classified elsewhere; Z79.899 Other long term (current) drug therapy; Z98.890 Other specified postprocedural states
CPT/HCPCS: 96360; 96361 ×3; 80076; 80048 ×2; 85025 ×2; 36415 ×3; 76770; 96372 ×2; 80053; 82948 ×4; 84100; 84550; 85027; G0378 ×54; J1650 ×2